=== PATIENT | female | born 1945 | race Caucasian/White ===

== ENCOUNTER → 2025-01-24 15:13 | Outpatient (REF) | payer MEDICARE, OTHER, SELFPAY ==
[2025-01-24 14:28] LABS: Hematocrit 26.0 % (37.0-47.0); Hemoglobin 8.2 g/dL (12.0-16.0); Mean Corp Hgb Conc. 31.5 g/dL (33.0-37.0); Mean Corpuscular Volume 102.8 fL (81.0-99.0); Platelet Count 127 10^3/uL (130-400); Red Cell Dist. Width 12.7 % (11.5-14.5)
== END ==
LOC: OIDL 15:13
PROVIDERS: ATTENDING PHYSICIAN Internal Medicine Hematology & Oncology
DX: D69.6 Thrombocytopenia, unspecified (principal); D50.0 Iron deficiency anemia secondary to blood loss (chronic)
CPT/HCPCS: 85025